=== PATIENT | male | born 1965 | race Caucasian/White ===

== ENCOUNTER → 2020-08-10 | Outpatient (REF) ==
--- NOTE | 2020-08-11 01:44 | REPPI ---
INDICATION: DISABILITY DIAGNOSIS DETERMINATION COMPARISON: None. TECHNIQUE: AP, lateral, bilateral oblique and sunrise views. FINDINGS: The tibiofemoral joint spaces appear relatively age-appropriate and normal. Lateral and sunrise views demonstrate increased sclerosis to the anterior and posterior patellar margins with marginal patellar spurring and calcifications at the quadriceps tendon insertion. No acute fracture or dislocation. No obvious acute effusion.. IMPRESSION: Degenerative changes involving the patellofemoral joint space. <Electronically signed by Vini Saunders > 08/11/20 0147
--- NOTE | 2020-08-11 01:49 | REPPI ---
INDICATION: DISABILITY DIAGNOSIS DETERMINATION COMPARISON: None. TECHNIQUE: Internal rotation, external rotation, and Y view. FINDINGS: Mild cortical irregularity at the acromioclavicular joint. Subacromial space is normal. No periarticular calcifications or loose bodies are identified. There is subtle cortical irregularity to the inferior portion of the calcified glenoid rim. Humerus appears relatively normal. No acute fracture or dislocation. IMPRESSION: Mild age-related degenerative changes. <Electronically signed by Vini Saunders > 08/11/20 0148
== END ==
LOC: M PLAIMG 14:01
PROVIDERS: ATTEND Internal Medicine
DX: Z00.00 Encounter for general adult medical examination without abnormal findings (principal)

== ENCOUNTER → 2021-06-20 | Outpatient (REF) | LOC: M PLAIMG 12:31 | PROVIDERS: ATTEND Internal Medicine | DX: M19.90 Unspecified osteoarthritis, unspecified site (principal) ==

== ENCOUNTER → 2021-10-05 | Outpatient (CLI) | payer OTHER ==
[2021-10-05 11:22] LABS: BASO % 0.2 % (0.0-1.0); EOS # 0.1 10^3/uL (0.0-0.5); EOS % 1.3 % (0.0-3.0); HEMATOCRIT 44.8 % (42.0-52.0); HEMOGLOBIN 14.7 g/dl (13.5-17.5); LYMPH # 1.6 10^3/uL (1.5-5.0); LYMPH % 30.3 % (24.0-44.0); MEAN CORPUSCULAR HEMOGLOBIN 29.3 pg (27.0-33.0); MEAN CORPUSCULAR HGB CONC 32.8 g/dl (32.0-36.5); MEAN CORPUSCULAR VOLUME 89.2 fl (80.0-96.0); MONO # 0.5 10^3/uL (0.0-0.8); MONO % 9.4 % (2.0-8.0); NEUTROPHILS # 3.1 10^3/uL (1.5-8.5); NEUTROPHILS % 58.6 % (36.0-66.0); PLATELET COUNT, AUTOMATED 201 10^3/uL (150-450); RED BLOOD COUNT 5.02 10^6/uL (4.30-6.10); WHITE BLOOD COUNT 5.3 10^3/uL (4.0-10.0)
[2021-10-05 11:41] LABS: APPEARANCE, URINE CLEAR (CLEAR); BACTERIA, URINE AUTO NEGATIVE (NEGATIVE); BILIRUBIN, URINE AUTO NEGATIVE (NEGATIVE); BLOOD, URINE BLOOD NEGATIVE (NEGATIVE); GLUCOSE, URINE (UA) AUTO NEGATIVE (NEGATIVE); KETONE, URINE AUTO NEGATIVE (NEGATIVE); LEUKOCYTE ESTERASE, URINE AUTO NEGATIVE (NEGATIVE); NITRITE, URINE AUTO NEGATIVE (NEGATIVE); PROTEIN, URINE AUTO NEGATIVE (NEGATIVE); RBC, URINE AUTO 0 /HPF (0-3); SPECIFIC GRAVITY URINE AUTO 1.019 (1.002-1.035); SQUAMOUS EPITHELIAL CELL UR AU 1 /HPF (0-6); UROBILINOGEN, URINE AUTO 0.2 mg/dL (0.0-2.0); WBC, URINE AUTO 3 /HPF (0-3)
[2021-10-05 11:48] LABS: COLOR, URINE BLUE (YELLOW)
[2021-10-05 12:23] LABS: ALBUMIN 3.6 GM/DL (3.2-5.2); ALT/SGPT 41 U/L (12-78); BILIRUBIN,TOTAL 0.5 MG/DL (0.2-1.0); BLOOD UREA NITROGEN 14 MG/DL (7-18); CARBON DIOXIDE LEVEL 32 MEQ/L (21-32); CHLORIDE LEVEL 110 MEQ/L (98-107); CREATININE FOR GFR 1.09 MG/DL (0.70-1.30); GLOMERULAR FILTRATION RATE > 60.0 (>56); GLUCOSE, FASTING 122 MG/DL (70-100); POTASSIUM SERUM 4.2 MEQ/L (3.5-5.1); SODIUM LEVEL 141 MEQ/L (136-145); TOTAL PROTEIN 6.6 GM/DL (6.4-8.2)
== END ==
LOC: M RAD 10:35
PROVIDERS: ATTEND Nurse Practitioner Family
DX: Z01.810 Encounter for preprocedural cardiovascular examination (principal)

== ENCOUNTER 2022-09-28 14:01 | Emergency (ER) | payer MEDICARE, OTHER ==
[~2022-09-28] VITALS: Ht 175.3 cm; Wt 99.7 kg
[2022-09-28 14:10] VITALS: TEMP 97.4
[2022-09-28] MEDS ORDERED: NS 1,000 ML IV SCH (14:15)
[2022-09-28 15:00] LABS: EOS % 0.7 % (0.0-3.0); HEMATOCRIT 40.4 % (42.0-52.0); HEMOGLOBIN 13.5 g/dl (13.5-17.5); LYMPH # 1.6 10^3/uL (1.5-5.0); LYMPH % 28.2 % (24.0-44.0); MEAN CORPUSCULAR HEMOGLOBIN 30.3 pg (27.0-33.0); MEAN CORPUSCULAR HGB CONC 33.4 g/dl (32.0-36.5); MEAN CORPUSCULAR VOLUME 90.8 fl (80.0-96.0); MONO # 0.5 10^3/uL (0.0-0.8); MONO % 8.9 % (2.0-8.0); NEUTROPHILS # 3.4 10^3/uL (1.5-8.5); PLATELET COUNT, AUTOMATED 176 10^3/uL (150-450); RED BLOOD COUNT 4.45 10^6/uL (4.30-6.10); WHITE BLOOD COUNT 5.5 10^3/uL (4.0-10.0)
[2022-09-28 15:32] LABS: LIPASE 22 U/L (12-53)
[2022-09-28 15:34] LABS: ALBUMIN 3.6 G/DL (3.2-5.2); ALKALINE PHOSPHATASE 51 U/L (46-116); ALT/SGPT 37 U/L (7.0-40); AST/SGOT 13 U/L (<34); BILIRUBIN,DIRECT 0.3 MG/DL (<0.4); BILIRUBIN,TOTAL 0.8 MG/DL (0.3-1.2); BLOOD UREA NITROGEN 17 MG/DL (9-23); CALCIUM LEVEL 9.3 MG/DL (8.5-10.1); CARBON DIOXIDE LEVEL 28 MMOL/L (20-31); CHLORIDE LEVEL 107 MMOL/L (98-107); CREATININE FOR GFR 0.94 MG/DL (0.70-1.30); GLOMERULAR FILTRATION RATE > 60.0 (>56); GLUCOSE, FASTING 95 MG/DL (60-100); POTASSIUM SERUM 3.8 MMOL/L (3.5-5.1); SODIUM LEVEL 140 MMOL/L (136-145); TOTAL PROTEIN 6.1 G/DL (5.7-8.2)
[2022-09-28] MEDS ORDERED: ISOVUE-370 76% 100ML VIAL As Ordered ONE (16:02)
[2022-09-28] MEDS ORDERED: SUCRALFATE SUSP 1GM/10ML UD PO ONE (17:10)
[2022-09-28] MEDS ORDERED: PANTOPRAZOLE 40MG TAB (PROTONIX) PO ONE (17:10)
[2022-09-28 17:30] VITALS: BP 133/67
[2022-09-28] MEDS ORDERED: SUCR1SS PO (17:31)
[2022-09-28] MEDS ORDERED: PROT1TAB2 PO (17:31)
[2022-09-28 17:34] VITALS: O2SAT 97
== END 2022-09-28 17:41 | disposition home or self-care (01) ==
LOC: M ED 14:01
DX: R10.9 Unspecified abdominal pain (principal); I77.4 Celiac artery compression syndrome; K21.9 Gastro-esophageal reflux disease without esophagitis; R56.9 Unspecified convulsions; K75.81 Nonalcoholic steatohepatitis (NASH); Z87.891 Personal history of nicotine dependence
CPT/HCPCS: 70450; 74177; 80048; 80076; 83605; 83690; 85025; 93005; 96360; 96361; 99285; Q9967

== ENCOUNTER 2023-04-29 08:29 | Day surgery (SDC) | payer OTHER ==
[~2023-04-29] VITALS: Ht 175.3 cm; Wt 112.9 kg
[~2023-04-29 08:29] MED LIST: FISH1CAP26 PO; GABA-1171 PO; LEVE750T5 PO; PANT40TA29 PO; PROT1TAB2 PO; SILD100T PO; SUCR1SS PO; SUCR1TAB56 PO; TAMS1CAP17 PO; THERTAB52 PO
[2023-04-29] MEDS ORDERED: LR 1,000 ML IV SCH ×2 (09:45→11:40)
[2023-04-29] MEDS: ceFAZolin SOD 2 GM in IV 1 EA IV ONE (11:21)
[2023-04-29] MEDS ORDERED: fentaNYL 100 MCG/2 ML INJECTION As Ordered ONE (11:23)
[2023-04-29] MEDS ORDERED: propofoL 200 MG/20 ML VIAL As Ordered ONE (11:23)
[2023-04-29] MEDS ORDERED: ONDANSETRON 4MG 2ML VIAL As Ordered ONE (11:23)
[2023-04-29] MEDS ORDERED: MIDAZOLAM INJ 2MG/2ML VIAL As Ordered ONE (11:23)
[2023-04-29] MEDS ORDERED: LIDOCAINE 2% 100MG/5ML SDV (FOR ANES.) As Ordered ONE (11:23)
[2023-04-29] MEDS ORDERED: ACETAMINOPHEN 1000MG 100ML IV BAG As Ordered ONE (11:27)
[2023-04-29] MEDS ORDERED: HYDROMORPHONE HCL 0.5 MG/ 0.5 ML SYRINGE IV PRN (11:40)
[2023-04-29] MEDS ORDERED: fentaNYL 100 MCG/2 ML INJECTION IV PRN (11:40)
[2023-04-29] MEDS ORDERED: OXYB5TAB11 PO (11:44)
[2023-04-29] MEDS ORDERED: PYRI1TAB5 PO (11:44)
[2023-04-29] MEDS ORDERED: MACR100C43 PO (11:44)
[2023-04-29] MEDS: oxyCODONE 5MG TAB PO PRN (12:33)
[2023-04-29] MEDS: ONDANSETRON 4MG 2ML VIAL IV PRN (12:33)
[2023-04-29 13:00] VITALS: BP 133/77; TEMP 97.8; O2SAT 97
== END 2023-04-29 13:36 | disposition home or self-care (01) ==
LOC: M SDC 08:29
PROVIDERS: ATTEND Urology
DX: N35.919 Unspecified urethral stricture, male, unspecified site (principal); R56.9 Unspecified convulsions; N40.1 Benign prostatic hyperplasia with lower urinary tract symptoms; Z87.440 Personal history of urinary (tract) infections; F41.9 Anxiety disorder, unspecified; K21.9 Gastro-esophageal reflux disease without esophagitis
CPT/HCPCS: 52276; J0131; J0690; J1100; J2250; J2405; J3010